=== PATIENT | female | born 1995 | race African-American/Black ===

== ENCOUNTER 2017-03-30 19:34 | Emergency (ER) | payer MEDICAID ==
[~2017-03-30] VITALS: Ht 167.6 cm; Wt 60.0 kg
[2017-03-30] MEDS ORDERED: TETRACAINE 0.5% OPHTH DROPS 4ML OP ONE (20:15)
[2017-03-30] MEDS ORDERED: BALANCED SALT IRRIG SOLN 15ML IO ONE (20:15)
[2017-03-30] MEDS ORDERED: FLUORESCEIN SODIUM 1MG/STRIP OP ONE (20:15)
[2017-03-30] MEDS ORDERED: ACETAMINOPHEN 325MG TABLET PO ONE (20:15)
[2017-03-30 21:13] LABS: HCG SCREEN NEGATIVE
[2017-03-31 00:35] VITALS: BP 121/78
== END 2017-03-31 00:37 | disposition home or self-care (01) ==
LOC: ER 19:35
DX: H10.212 Acute toxic conjunctivitis, left eye (principal)
CPT/HCPCS: 84703; 99284; J7030

== ENCOUNTER 2017-05-14 17:17 | Emergency (ER) | payer MEDICAID ==
[~2017-05-14] VITALS: Ht 167.6 cm; Wt 70.0 kg
[2017-05-15] MEDS ORDERED: ONDANSETRON 4MG ODT PO STA (00:10)
[2017-05-15] MEDS ORDERED: ACETAMINOPHEN 500MG TABLET PO ONE (00:15)
[2017-05-15 00:53] LABS: CHLORIDE 104 mEq/L (98-107)
[2017-05-15 01:02] LABS: CARBON DIOXIDE 29 mEq/L (21-32)
[2017-05-15 01:07] LABS: BASOPHILS % 0.7 % (0.0-2.0); EOSINOPHILS % 1.4 % (0.0-5.0); HEMATOCRIT. 36.7 % (36.0-48.0); HEMOGLOBIN. 11.9 g/dL (12.0-16.0); LYMPHOCYTES % 33.9 % (20.0-50.0); MEAN CORPUSCULAR HEMOGLOBIN 27.2 pg (28.0-32.0); MEAN CORPUSCULAR VOLUME 83.7 fL (81.0-99.0); MEAN PLATELET VOLUME 8.1 fl (7.4-10.4); MONOCYTES % 10.9 % (2.0-8.0); NEUTROPHILS % 53.1 % (40.0-76.0); PLATELET 215 x1000/uL (130-400); RED BLOOD CELL COUNT 4.38 mill/uL (4.2-5.4); RED CELL DISTRIBUTION WIDTH 14.3 % (11.6-14.6)
[2017-05-15 01:08] LABS: CLARITY URINE TURBID (CLEAR); COLOR URINE YELLOW (YELLOW); GLUCOSE URINE NEGATIVE (NEGATIVE); KETONES URINE NEGATIVE (NEGATIVE); LEUKOCYTE ESTERASE URINE 2+ (NEGATIVE); NITRITE URINE NEGATIVE (NEGATIVE); OCCULT BLOOD URINE NEGATIVE (NEGATIVE); PROTEIN URINE NEGATIVE (NEGATIVE); SPECIFIC GRAVITY URINE 1.023 (1.005-1.030)
[2017-05-15] MEDS ORDERED: CEFTRIAXONE SODIUM 1 G/VIAL IM ONE (01:30)
[2017-05-15] MEDS ORDERED: LIDOCAINE HCL 1% 20ML VIAL (Pyxis) INJ INFIL ONE (01:30)
[2017-05-15 02:30] VITALS: BP 144/88
== END 2017-05-15 02:31 | disposition home or self-care (01) ==
LOC: ER 17:17
DX: N39.0 Urinary tract infection, site not specified (principal); Z98.890 Other specified postprocedural states
CPT/HCPCS: 36415; 80053; 81001; 81025; 83690; 85025; 96372; 99284; J0696; J3490; Q0162; Z7610

== ENCOUNTER 2018-02-01 03:35 | Emergency (ER) | payer MEDICAID ==
[~2018-02-01] VITALS: Ht 165.1 cm; Wt 68.0 kg
[2018-02-01] MEDS ORDERED: HYDROCODONE/ACETAMINOPHEN 5/325MG TABLET PO ONE (06:30)
[2018-02-01] MEDS ORDERED: TETANUS, DIPHTHERIA, PERTUSSIS VAC/PF 0.5ML (>7YR OLD) IM ONE (06:30)
[2018-02-01] MEDS ORDERED: LIDOCAINE HCL 1% 20ML VIAL (Pyxis) INJ MC ONE ×3 (06:30→08:00)
[2018-02-01] MEDS ORDERED: BACITRACIN ZINC OINT UDPKT TOP ONE (06:30)
[2018-02-01] MEDS ORDERED: LIDOCAINE HCL/PF 1% 10 MG/ML 5ML VIAL IJ ONE (08:00)
[2018-02-01 10:00] VITALS: BP 108/72
== END 2018-02-01 11:24 | disposition home or self-care (01) ==
LOC: ER 03:35
DX: S01.81XA Laceration without foreign body of other part of head, initial encounter (principal); S01.01XA Laceration without foreign body of scalp, initial encounter; M54.2 Cervicalgia; W22.8XXA Striking against or struck by other objects, initial encounter; Y93.89 Activity, other specified; Y92.89 Other specified places as the place of occurrence of the external cause; Y99.8 Other external cause status; Z98.890 Other specified postprocedural states
CPT/HCPCS: 12013; 70450; 70486; 72125; 81025; 90471; 90715; 99284; J3490; X7700; Z7610

== ENCOUNTER 2018-02-02 09:59 | Emergency (ER) | payer MEDICAID ==
[~2018-02-02] VITALS: Ht 165.1 cm; Wt 69.0 kg
[2018-02-02 11:27] VITALS: BP 114/74
== END 2018-02-02 11:28 | disposition home or self-care (01) ==
LOC: ER 10:53
DX: S01.81XD Laceration without foreign body of other part of head, subsequent encounter (principal); X58.XXXD Exposure to other specified factors, subsequent encounter; Y93.89 Activity, other specified; Y99.8 Other external cause status; Y92.89 Other specified places as the place of occurrence of the external cause; Z98.890 Other specified postprocedural states
CPT/HCPCS: 99281

== ENCOUNTER 2018-02-07 08:50 | Emergency (ER) | payer MEDICAID ==
[~2018-02-07] VITALS: Ht 167.6 cm; Wt 69.0 kg
[2018-02-08 08:29] VITALS: BP 124/64
== END 2018-02-08 08:46 | disposition home or self-care (01) ==
LOC: ER 09:29
DX: S01.81XD Laceration without foreign body of other part of head, subsequent encounter (principal); Z48.02 Encounter for removal of sutures; Z98.890 Other specified postprocedural states; X58.XXXD Exposure to other specified factors, subsequent encounter
CPT/HCPCS: 99283

== ENCOUNTER 2018-02-23 08:52 | Emergency (ER) | payer MEDICAID ==
[~2018-02-23] VITALS: Ht 167.6 cm; Wt 69.0 kg
[2018-02-23 09:20] VITALS: BP 107/59
[2018-02-23] MEDS ORDERED: IBUPROFEN 800MG TABLET PO ONE (10:45)
== END 2018-02-23 10:59 | disposition home or self-care (01) ==
LOC: ER 10:23
DX: R51 Headache (principal)
CPT/HCPCS: 99282

== ENCOUNTER 2019-05-25 03:50 | Emergency (ER) | payer OTHER, MEDICAID ==
[~2019-05-25] VITALS: Ht 167.6 cm; Wt 82.0 kg
[2019-05-25] MEDS ORDERED: IBUPROFEN 600MG TABLET PO ONE (04:45)
[2019-05-25] MEDS ORDERED: LIDOCAINE HCL/PF 1% 10 MG/ML 5ML VIAL IJ ONE (04:45)
[2019-05-25] MEDS ORDERED: BACITRACIN ZINC OINT UDPKT TOP ONE (04:45)
[2019-05-25 06:00] VITALS: BP 100/59
== END 2019-05-25 06:06 | disposition home or self-care (01) ==
LOC: ER 03:50
DX: L02.31 Cutaneous abscess of buttock (principal); Z98.890 Other specified postprocedural states
CPT/HCPCS: 10060; 81025; 99283; J3490

== ENCOUNTER 2019-05-27 07:55 | Emergency (ER) | payer OTHER, MEDICAID ==
[~2019-05-27] VITALS: Ht 167.6 cm; Wt 82.0 kg
[2019-05-27 08:02] VITALS: BP 117/66
[2019-05-27] MEDS ORDERED: CLINDAMYCIN HCL 150MG CAPSULE PO STA (08:51)
[2019-05-27] MEDS ORDERED: ACETAMINOPHEN 325MG TABLET PO ONE (09:00)
== END 2019-05-27 09:57 | disposition home or self-care (01) ==
LOC: ER 07:55
DX: Z48.00 Encounter for change or removal of nonsurgical wound dressing (principal)
CPT/HCPCS: 99283

== ENCOUNTER 2019-05-29 06:33 | Emergency (ER) | payer OTHER, MEDICAID ==
[~2019-05-29] VITALS: Ht 167.6 cm; Wt 82.0 kg
[2019-05-29 07:07] VITALS: BP 105/60
[2019-05-29] MEDS ORDERED: IBUPROFEN 600MG TABLET ONE (07:42)
== END 2019-05-29 08:30 | disposition home or self-care (01) ==
LOC: ER 06:33
DX: Z48.01 Encounter for change or removal of surgical wound dressing (principal)
CPT/HCPCS: 99281; A4217; Z7610

== ENCOUNTER 2019-05-31 07:15 | Emergency (ER) | payer OTHER, MEDICAID ==
[~2019-05-31] VITALS: Ht 165.1 cm; Wt 81.0 kg
[2019-05-31 07:44] VITALS: BP 95/62
[2019-05-31] MEDS ORDERED: BACITRACIN ZINC OINT UDPKT TOP ONE (09:00)
== END 2019-05-31 09:15 | disposition home or self-care (01) ==
LOC: ER 07:15
DX: Z48.01 Encounter for change or removal of surgical wound dressing (principal); Z79.899 Other long term (current) drug therapy
CPT/HCPCS: 99281; 99283

== ENCOUNTER 2020-05-16 00:35 | Emergency (ER) | payer OTHER, MEDICAID ==
[~2020-05-16] VITALS: Ht 172.7 cm; Wt 64.0 kg
[2020-05-16] MEDS ORDERED: VISCOUS LIDOCAINE 2% 15 ML UDC PO ONE (01:45)
[2020-05-16] MEDS ORDERED: MAGNESIUM/ALUMINUM HYDROXIDE/SIMETHICONE 30ML UDC PO ONE (01:45)
[2020-05-16 02:20] LABS: EOSINOPHILS % 0.6 % (0.0-5.0); HEMATOCRIT. 35.7 % (36.0-48.0); LYMPHOCYTES % 21.9 % (20.0-50.0); MEAN CORPUSCULAR HEMOGLOBIN 28.5 pg (28.0-32.0); MEAN CORPUSCULAR VOLUME 84.6 fL (81.0-99.0); MEAN PLATELET VOLUME 8.4 fl (7.4-10.4); MONOCYTES % 7.5 % (2.0-8.0); PLATELET 190 x1000/uL (130-400); RED BLOOD CELL COUNT 4.22 mill/uL (4.2-5.4); RED CELL DISTRIBUTION WIDTH 14.4 % (11.6-14.6)
[2020-05-16 02:23] LABS: CHLORIDE 107 mEq/L (98-107)
[2020-05-16 02:27] LABS: ETHANOL BLOOD < 10 mg/dL
[2020-05-16 03:36] LABS: HCG SCREEN NEGATIVE
[2020-05-16 06:36] VITALS: BP 107/70
== END 2020-05-16 06:36 | disposition home or self-care (01) ==
LOC: ER 00:35
DX: R11.2 Nausea with vomiting, unspecified (principal)
CPT/HCPCS: 36415; 80053; 80320; 84484; 84703; 85025; 93005; 99285; G0480

== ENCOUNTER 2020-06-06 20:21 | Emergency (ER) | payer OTHER, MEDICAID ==
[~2020-06-06] VITALS: Ht 167.6 cm; Wt 68.0 kg
[2020-06-06] MEDS ORDERED: ONDANSETRON HCL 4MG/2ML INJ IV ONE (21:00)
[2020-06-06] MEDS ORDERED: SODIUM CHLORIDE 0.9% 1,000 ML IV ONE (21:00)
[2020-06-06 21:24] LABS: BASOPHILS % 0.5 % (0.0-2.0); EOSINOPHILS % 0.5 % (0.0-5.0); HEMATOCRIT. 42.1 % (36.0-48.0); HEMOGLOBIN. 13.8 g/dL (12.0-16.0); LYMPHOCYTES % 21.8 % (20.0-50.0); MEAN CORPUSCULAR HEMOGLOBIN 27.5 pg (28.0-32.0); MEAN CORPUSCULAR VOLUME 83.7 fL (81.0-99.0); MEAN PLATELET VOLUME 8.1 fl (7.4-10.4); MONOCYTES % 11.8 % (2.0-8.0); NEUTROPHILS % 65.4 % (40.0-76.0); PLATELET 248 x1000/uL (130-400); RED BLOOD CELL COUNT 5.03 mill/uL (4.2-5.4); RED CELL DISTRIBUTION WIDTH 14.8 % (11.6-14.6)
[2020-06-06 21:28] LABS: CHLORIDE 105 mEq/L (98-107)
[2020-06-06 21:40] LABS: B-HCG QUANTITATIVE 143 mIU/mL (<3)
[2020-06-06 22:45] LABS: CLARITY URINE CLOUDY (CLEAR); COLOR URINE YELLOW (YELLOW); KETONES URINE NEGATIVE (NEGATIVE); LEUKOCYTE ESTERASE URINE 2+ (NEGATIVE); NITRITE URINE NEGATIVE (NEGATIVE); OCCULT BLOOD URINE NEGATIVE (NEGATIVE); PROTEIN URINE NEGATIVE (NEGATIVE); SPECIFIC GRAVITY URINE 1.023 (1.005-1.030)
[2020-06-07 00:52] VITALS: BP 104/62
== END 2020-06-07 00:57 | disposition home or self-care (01) ==
LOC: ER 20:21
DX: O20.0 Threatened abortion (principal); F17.290 Nicotine dependence, other tobacco product, uncomplicated; F12.10 Cannabis abuse, uncomplicated
CPT/HCPCS: 36415; 76801; 76817; 80053; 81003; 81025; 84702; 85025; 86850; 86900; 86901; 93005; 96361; 96374; 99285; J2405; J7030

== ENCOUNTER 2020-08-25 22:08 | Emergency (ER) | payer OTHER, MEDICAID ==
[~2020-08-25] VITALS: Ht 167.6 cm; Wt 68.0 kg
[2020-08-25 22:16] VITALS: BP 119/60
[2020-08-25 23:06] LABS: CLARITY URINE CLEAR (CLEAR); COLOR URINE YELLOW (YELLOW); KETONES URINE NEGATIVE (NEGATIVE); LEUKOCYTE ESTERASE URINE NEGATIVE (NEGATIVE); NITRITE URINE NEGATIVE (NEGATIVE); OCCULT BLOOD URINE NEGATIVE (NEGATIVE); PH URINE 7.5 (4.5-8.0); PROTEIN URINE NEGATIVE (NEGATIVE); SPECIFIC GRAVITY URINE 1.022 (1.005-1.030)
[2020-08-25 23:17] LABS: *AMPHETAMINES SCREEN URINE NEGATIVE (NEGATIVE); *BARBITURATES SCREEN URINE NEGATIVE (NEGATIVE); *BENZODIAZEPINES SCREEN URINE NEGATIVE (NEGATIVE); *COCAINE SCREEN URINE NEGATIVE (NEGATIVE)
[2020-08-25 23:18] LABS: OPIATES URINE SCREEN NEGATIVE (NEGATIVE); PHENCYCLIDINE URINE SCREEN NEGATIVE (NEGATIVE)
[2020-08-25 23:19] LABS: METHADONE URINE SCREEN NEGATIVE (NEGATIVE)
[2020-08-25 23:22] LABS: CANNABINOID URINE SCREEN PRESUMTIVE POSITIVE (NEGATIVE)
[2020-08-25 23:38] LABS: CHLORIDE 107 mEq/L (98-107)
[2020-08-25 23:44] LABS: BASOPHILS % 0.4 % (0.0-2.0); EOSINOPHILS % 1.6 % (0.0-5.0); HEMATOCRIT. 32.3 % (36.0-48.0); HEMOGLOBIN. 10.9 g/dL (12.0-16.0); LYMPHOCYTES % 22.2 % (20.0-50.0); MEAN CORPUSCULAR HEMOGLOBIN 30.7 pg (28.0-32.0); MEAN CORPUSCULAR VOLUME 90.6 fL (81.0-99.0); MONOCYTES % 10.4 % (2.0-8.0); NEUTROPHILS % 65.4 % (40.0-76.0); PLATELET 225 x1000/uL (130-400); RED BLOOD CELL COUNT 3.56 mill/uL (4.2-5.4)
== END 2020-08-26 01:20 | disposition home or self-care (01) ==
LOC: ER 22:08
DX: O26.891 Other specified pregnancy related conditions, first trimester (principal); R10.33 Periumbilical pain; O99.321 Drug use complicating pregnancy, first trimester; F12.90 Cannabis use, unspecified, uncomplicated; Z3A.14 14 weeks gestation of pregnancy
CPT/HCPCS: 36415; 76801; 80053; 80305; 81003; 85025; 93005; 99285

== ENCOUNTER 2020-09-19 21:33 | Emergency (ER) | payer OTHER, MEDICAID ==
[~2020-09-19] VITALS: Ht 167.6 cm; Wt 69.0 kg
[2020-09-19] MEDS ORDERED: ACETAMINOPHEN 325MG TABLET PO STA (23:05)
[2020-09-19] MEDS ORDERED: BACITRACIN 15GM TUBE TOP ONE (23:15)
[2020-09-19 23:44] LABS: CHLORIDE 106 mEq/L (98-107)
[2020-09-20 00:04] LABS: BASOPHILS % 1.4 % (0.0-2.0); EOSINOPHILS % 3.1 % (0.0-5.0); HEMATOCRIT. 35.1 % (36.0-48.0); LYMPHOCYTES % 19.5 % (20.0-50.0); MEAN CORPUSCULAR HEMOGLOBIN 30.7 pg (28.0-32.0); MEAN CORPUSCULAR VOLUME 89.8 fL (81.0-99.0); MEAN PLATELET VOLUME 8.1 fl (7.4-10.4); MONOCYTES % 8.7 % (2.0-8.0); NEUTROPHILS % 67.3 % (40.0-76.0); PLATELET 243 x1000/uL (130-400); RED BLOOD CELL COUNT 3.91 mill/uL (4.2-5.4); RED CELL DISTRIBUTION WIDTH 13.3 % (11.6-14.6)
[2020-09-20 00:09] LABS: B-HCG QUANTITATIVE 23102 mIU/mL (<3)
[2020-09-20 00:10] LABS: CLARITY URINE CLOUDY (CLEAR); COLOR URINE YELLOW (YELLOW); KETONES URINE NEGATIVE (NEGATIVE); LEUKOCYTE ESTERASE URINE 2+ (NEGATIVE); NITRITE URINE NEGATIVE (NEGATIVE); OCCULT BLOOD URINE TRACE (NEGATIVE); PROTEIN URINE NEGATIVE (NEGATIVE); SPECIFIC GRAVITY URINE 1.023 (1.005-1.030)
[2020-09-20 00:31] VITALS: BP 110/61
== END 2020-09-20 01:13 | disposition home or self-care (01) ==
LOC: ER 21:33
DX: O20.0 Threatened abortion (principal); O23.32 Infections of other parts of urinary tract in pregnancy, second trimester; Z3A.19 19 weeks gestation of pregnancy; F12.10 Cannabis abuse, uncomplicated
CPT/HCPCS: 36415; 76805; 80053; 81003; 84702; 85025; 86850; 86900; 93005; 99285

== ENCOUNTER 2021-10-08 06:09 | Emergency (ER) | payer MEDICAID, OTHER ==
[~2021-10-08] VITALS: Ht 170.2 cm; Wt 73.0 kg
[2021-10-08] MEDS ORDERED: KETOROLAC 30MG/ML VIAL IV STA (07:55)
[2021-10-08] MEDS ORDERED: ONDANSETRON HCL 4MG/2ML INJ IV STA (07:55)
[2021-10-08 08:44] LABS: BASOPHILS % 0.6 % (0.0-2.0); EOSINOPHILS % 0.4 % (0.0-5.0); HEMATOCRIT. 38.6 % (36.0-48.0); LYMPHOCYTES % 11.2 % (20.0-50.0); MEAN CORPUSCULAR HEMOGLOBIN 24.9 pg (28.0-32.0); MEAN CORPUSCULAR VOLUME 80.2 fL (81.0-99.0); MEAN PLATELET VOLUME 7.9 fl (7.4-10.4); MONOCYTES % 7.2 % (2.0-8.0); NEUTROPHILS % 80.6 % (40.0-76.0); PLATELET 226 x1000/uL (130-400); RED BLOOD CELL COUNT 4.81 mill/uL (4.2-5.4); RED CELL DISTRIBUTION WIDTH 15.7 % (11.6-14.6)
[2021-10-08] MEDS ORDERED: ONDA4TAB5 PO (09:21)
[2021-10-08 10:44] LABS: CHLORIDE 107 mEq/L (98-107)
[2021-10-08 11:34] VITALS: BP 117/71
== END 2021-10-08 11:36 | disposition home or self-care (01) ==
LOC: ER 06:09
DX: K52.9 Noninfective gastroenteritis and colitis, unspecified (principal)
CPT/HCPCS: 36415; 80053; 83690; 85025; 96374; 96375; 99284; J1885; J2405

== ENCOUNTER 2023-02-14 21:55 | Emergency (ER) | payer MEDICAID ==
[~2023-02-14] VITALS: Ht 167.6 cm; Wt 68.6 kg
[~2023-02-14 21:55] MED LIST: ONDA4TAB5 PO
[2023-02-14 22:05] VITALS: BP 132/88
[2023-02-14 22:24] LABS: CLARITY URINE TURBID (CLEAR); COLOR URINE YELLOW (YELLOW); KETONES URINE NEGATIVE (NEGATIVE); LEUKOCYTE ESTERASE URINE 2+ (NEGATIVE); NITRITE URINE NEGATIVE (NEGATIVE); OCCULT BLOOD URINE NEGATIVE (NEGATIVE); PH URINE >=9.0 (4.5-8.0); PROTEIN URINE 1+ (NEGATIVE); SPECIFIC GRAVITY URINE 1.029 (1.005-1.030)
[2023-02-14 23:06] LABS: BASOPHILS % 0.6 % (0.0-2.0); EOSINOPHILS % 0.1 % (0.0-5.0); HEMATOCRIT. 38.9 % (36.0-48.0); HEMOGLOBIN. 12.3 g/dL (12.0-16.0); LYMPHOCYTES % 18.9 % (20.0-50.0); MEAN CORPUSCULAR HEMOGLOBIN 24.8 pg (28.0-32.0); MEAN CORPUSCULAR VOLUME 78.3 fL (81.0-99.0); MEAN PLATELET VOLUME 7.7 fl (7.4-10.4); MONOCYTES % 6.7 % (2.0-8.0); NEUTROPHILS % 73.7 % (40.0-76.0); PLATELET 324 x1000/uL (130-400); RED BLOOD CELL COUNT 4.97 mill/uL (4.2-5.4); RED CELL DISTRIBUTION WIDTH 15.8 % (11.6-14.6)
[2023-02-14 23:13] LABS: CHLORIDE 104 mEq/L (98-107)
[2023-02-14] MEDS ORDERED: MAGNESIUM/ALUMINUM HYDROXIDE/SIMETHICONE 30ML UDC PO STA (23:16)
[2023-02-14] MEDS ORDERED: VISCOUS LIDOCAINE 2% 15 ML UDC PO STA (23:16)
[2023-02-14] MEDS ORDERED: ONDANSETRON 4MG ODT PO STA (23:16)
[2023-02-14] MEDS ORDERED: FAMOTIDINE 20MG TABLET PO ONE (23:30)
[2023-02-14 23:50] LABS: ETHANOL BLOOD < 10 mg/dL
[2023-02-15 00:10] LABS: HCG SCREEN NEGATIVE
[2023-02-15] MEDS ORDERED: ONDA4TAB50 MT (01:19)
[2023-02-15] MEDS ORDERED: TOPUD MT (01:19)
[2023-02-15] MEDS ORDERED: CIPR-264 MT (01:19)
[2023-02-15] MEDS ORDERED: FAMO-135 MT (01:19)
== END 2023-02-15 01:49 | disposition home or self-care (01) ==
LOC: ER 21:55
DX: N39.0 Urinary tract infection, site not specified (principal); Z98.890 Other specified postprocedural states
CPT/HCPCS: 36415; 74176; 80053; 80320; 81003; 83690; 84703; 85025; 99284; Q0162; G0480

== ENCOUNTER 2023-06-22 18:04 | Inpatient (IN) | payer MEDICAID ==
[~2023-06-22] VITALS: Ht 167.6 cm; Wt 66.8 kg
[~2023-06-22 18:04] MED LIST changes: +CIPR-264 MT; +FAMO-135 MT; +ONDA4TAB50 MT; +TOPUD MT
[2023-06-22] MEDS: ACETAMINOPHEN 325MG TABLET PO STA (18:41)
[2023-06-22] MEDS ORDERED: SODIUM CHLORIDE 0.9% 1000ML BAG (SEPSIS BOLUS) IV ONE (18:45)
[2023-06-22 19:23] LABS: CHLORIDE 104 mEq/L (98-107); INDEX HEMOLYSI 1 (1-3); INDEX ICTERIC 1 (1-4); INDEX LIPEMIC 1 (1-3); SODIUM 133 mEq/L (136-145)
[2023-06-22 19:30] LABS: ALANINE AMINOTRANSFERASE 18 IU/L (13-61); ALBUMIN 2.7 g/dL (3.4-5.0); ASPARTATE AMINOTRANSFERASE 19 IU/L (15-37); BILIRUBIN TOTAL 0.5 mg/dL (0.1-1.0); CALCIUM 7.9 mg/dL (8.5-10.1); CARBON DIOXIDE 24 mEq/L (21-32); CREATINE KINASE 180 IU/L (26-192); CREATININE 0.8 mg/dL (0.6-1.3); ETHANOL BLOOD < 10 mg/dL (-10); GLUCOSE 109 mg/dL (70-105); PROTEIN TOTAL 8.6 g/dL (6.0-8.3); UREA NITROGEN BLOOD 4 mg/dL (7-21)
[2023-06-22 19:31] LABS: BASOPHILS % 0.1 % (0.0-2.0); DIFFERENTIAL COMMENT 0; HEMATOCRIT. 31.3 % (36.0-48.0); HEMOGLOBIN. 9.5 g/dL (12.0-16.0); LYMPHOCYTES % 11.9 % (20.0-50.0); MEAN CORPUSCULAR HEMOGLOBIN 22.7 pg (28.0-32.0); MEAN CORPUSCULAR HGB CONC 30.4 g/dL (31.0-37.0); MEAN CORPUSCULAR VOLUME 74.5 fL (81.0-99.0); MEAN PLATELET VOLUME 8.1 fl (7.4-10.4); PLATELET 425 x1000/uL (130-400); RED CELL DISTRIBUTION WIDTH 16.4 % (11.6-14.6); WHITE BLOOD COUNT 11.8 x1000/uL (4.5-11.0)
[2023-06-22 19:42] LABS: HCG SCREEN NEGATIVE
[2023-06-22 20:08] LABS: LACTIC ACID 2.5 mmol/L (0.4-2.0)
[2023-06-22] MEDS ORDERED: VANCOMYCIN 1G PREMIX 200 ML IV ONE (21:00)
[2023-06-22] MEDS ORDERED: PIPERACILLIN/TAZ 3.375G PREMIX 50 ML IV ONE (21:00)
[2023-06-22] MEDS ORDERED: ACETAMINOPHEN 325MG TABLET PO NR (23:00)
[2023-06-23] MEDS ORDERED: LIDOCAINE HCL/EPINEPHRINE 1%-EPI 1:100,000 20 ML VIAL INFIL ONE (00:15)
[2023-06-23] MEDS ORDERED: ACETAMINOPHEN WITH CODEINE 300/30MG TABLET PO ONE (00:15)
[2023-06-23 01:36] LABS: CLARITY URINE CLOUDY (CLEAR); COLOR URINE YELLOW (YELLOW); GLUCOSE URINE NEGATIVE (NEGATIVE); KETONES URINE NEGATIVE (NEGATIVE); LEUKOCYTE ESTERASE URINE 3+ (NEGATIVE); NITRITE URINE POSITIVE (NEGATIVE); OCCULT BLOOD URINE 1+ (NEGATIVE); PH URINE 5.5 (4.5-8.0); PROTEIN URINE TRACE (NEGATIVE); UROBILINOGEN URINE 0.2 E.U./dL (0.2-1.0)
[2023-06-23 01:50] LABS: *BARBITURATES SCREEN URINE NEGATIVE (NEGATIVE); *BENZODIAZEPINES SCREEN URINE NEGATIVE (NEGATIVE); *COCAINE SCREEN URINE NEGATIVE (NEGATIVE); CANNABINOID URINE SCREEN NEGATIVE (NEGATIVE); ECSTASY MDMA SCREEN URINE NEGATIVE (NEGATIVE); METHADONE URINE SCREEN NEGATIVE (NEGATIVE); OPIATES URINE SCREEN NEGATIVE (NEGATIVE); PHENCYCLIDINE URINE SCREEN NEGATIVE (NEGATIVE)
[2023-06-23 02:04] LABS: *AMPHETAMINES SCREEN URINE PRESUMTIVE POSITIVE (NEGATIVE)
[2023-06-23 02:18] LABS: WBC URINE 15-25 /hpf (0-2)
[2023-06-23 02:19] LABS: BACTERIA URINE 1+; SQUAMOUS EPITHELIAL CELL URINE FEW /lpf (RARE/1+)
[2023-06-23 03:00] VITALS: BP 132/80; PULSE 96; RESP 18; TEMP 98.8
[2023-06-23 03:43] VITALS: BP 132/80; PULSE 96; RESP 18; TEMP 98.8
[2023-06-23] MEDS ORDERED: ONDANSETRON 4MG ODT PO PRN (03:45)
[2023-06-23] MEDS: ACETAMINOPHEN 325MG TABLET PO PRN ×3 (05:32→14:04)
[2023-06-23] MEDS ORDERED: CEFTRIAXONE 1GM PREMIX 50 ML IV SCH (09:30)
[2023-06-23 09:48] LABS: CHLORIDE 107 mEq/L (98-107); INDEX HEMOLYSI 1 (1-3); INDEX ICTERIC 1 (1-4); INDEX LIPEMIC 1 (1-3); POTASSIUM 3.4 mEq/L (3.5-5.1); SODIUM 136 mEq/L (136-145)
[2023-06-23 09:53] LABS: CALCIUM 7.8 mg/dL (8.5-10.1); CARBON DIOXIDE 24 mEq/L (21-32); CREATININE 0.6 mg/dL (0.6-1.3); GLUCOSE 151 mg/dL (70-105); UREA NITROGEN BLOOD 5 mg/dL (7-21)
[2023-06-23 09:54] LABS: DIFFERENTIAL COMMENT 0; EOSINOPHILS % 0.1 % (0.0-5.0); HEMOGLOBIN. 8.7 g/dL (12.0-16.0); LYMPHOCYTES % 9.5 % (20.0-50.0); MEAN CORPUSCULAR HEMOGLOBIN 22.9 pg (28.0-32.0); MEAN CORPUSCULAR HGB CONC 31.2 g/dL (31.0-37.0); MEAN CORPUSCULAR VOLUME 73.6 fL (81.0-99.0); MEAN PLATELET VOLUME 8.3 fl (7.4-10.4); MONOCYTES % 4.3 % (2.0-8.0); NEUTROPHILS % 84.1 % (40.0-76.0); PLATELET 340 x1000/uL (130-400); RED CELL DISTRIBUTION WIDTH 16.3 % (11.6-14.6); WHITE BLOOD COUNT 10.8 x1000/uL (4.5-11.0)
[2023-06-23 12:00] VITALS: BP 114/62; PULSE 88; RESP 18; TEMP 97.2
[2023-06-23] MEDS: CEFTRIAXONE 1,000 MG in DEXTROSE 5% WATER 50 ML IV SCH (13:13)
[2023-06-23] MEDS: FAMOTIDINE 20MG TABLET PO SCH ×2 (13:13→17:00)
[2023-06-23 16:00] VITALS: BP 127/81; PULSE 92; RESP 18; TEMP 98.1
[2023-06-23] MEDS ORDERED: NALOXONE HCL 0.4MG/ML VIAL IV PRN (16:00)
[2023-06-23] MEDS: HYDROCODONE/ACETAMINOPHEN 10/325MG TABLET PO PRN ×2 (16:07→21:13)
[2023-06-23 20:00] VITALS: BP 102/62; PULSE 96; RESP 17; TEMP 97.3
[2023-06-23 23:39] VITALS: BP 114/69; PULSE 109; RESP 20; TEMP 97.1
[2023-06-24] MEDS: HYDROCODONE/ACETAMINOPHEN 10/325MG TABLET PO PRN ×3 (03:14→11:31)
[2023-06-24 04:00] VITALS: BP 124/62; PULSE 101; RESP 20; TEMP 97.3
[2023-06-24 07:40] LABS: BASOPHILS % 0.1 % (0.0-2.0); DIFFERENTIAL COMMENT 0; EOSINOPHILS % 0.1 % (0.0-5.0); HEMATOCRIT. 27.5 % (36.0-48.0); HEMOGLOBIN. 8.4 g/dL (12.0-16.0); LYMPHOCYTES % 8.8 % (20.0-50.0); MEAN CORPUSCULAR HEMOGLOBIN 22.6 pg (28.0-32.0); MEAN CORPUSCULAR HGB CONC 30.6 g/dL (31.0-37.0); MEAN CORPUSCULAR VOLUME 74.1 fL (81.0-99.0); MEAN PLATELET VOLUME 8.7 fl (7.4-10.4); MONOCYTES % 4.4 % (2.0-8.0); NEUTROPHILS % 86.6 % (40.0-76.0); PLATELET 331 x1000/uL (130-400); RED BLOOD CELL COUNT 3.71 mill/uL (4.2-5.4); RED CELL DISTRIBUTION WIDTH 16.5 % (11.6-14.6); WHITE BLOOD COUNT 11.7 x1000/uL (4.5-11.0)
[2023-06-24 07:56] LABS: CHLORIDE 102 mEq/L (98-107); INDEX HEMOLYSI 1 (1-3); INDEX ICTERIC 1 (1-4); INDEX LIPEMIC 1 (1-3); POTASSIUM 3.8 mEq/L (3.5-5.1); SODIUM 133 mEq/L (136-145)
[2023-06-24 08:00] VITALS: BP 108/97; PULSE 78; RESP 18; TEMP 97.8
[2023-06-24 08:04] LABS: CALCIUM 7.9 mg/dL (8.5-10.1); CARBON DIOXIDE 27 mEq/L (21-32); CREATININE 0.7 mg/dL (0.6-1.3); GLUCOSE 73 mg/dL (70-105); UREA NITROGEN BLOOD 4 mg/dL (7-21)
[2023-06-24] MEDS: CEFTRIAXONE 1,000 MG in DEXTROSE 5% WATER 50 ML IV SCH (10:10)
[2023-06-24] MEDS: FAMOTIDINE 20MG TABLET PO SCH (10:10)
[2023-06-24] MEDS ORDERED: SULF1TAB48 MT (11:08)
[2023-06-24] MEDS ORDERED: AMOX1TAB16 MT (11:08)
[2023-06-24 12:00] VITALS: BP 105/70; PULSE 80; RESP 18; TEMP 97.7
[2023-06-24 12:32] VITALS: BP 105/66; PULSE 80; TEMP 97.7; O2SAT 98
== END 2023-06-24 13:05 | disposition home or self-care (01) | DRG 710 ==
LOC: ER 19:48 → 4WST 06-23 02:55
PROVIDERS: ADMIT Internal Medicine; ATTEND Internal Medicine
PROC: 0U9M0ZZ Drainage of Vulva, Open Approach (ICD-10-PCS; principal; 2023-06-22)
DX: A41.9 Sepsis, unspecified organism (principal); E43 Unspecified severe protein-calorie malnutrition; E87.20 Acidosis, unspecified; E88.09 Other disorders of plasma-protein metabolism, not elsewhere classified; F15.90 Other stimulant use, unspecified, uncomplicated; D50.9 Iron deficiency anemia, unspecified; E87.6 Hypokalemia; F17.210 Nicotine dependence, cigarettes, uncomplicated; N93.9 Abnormal uterine and vaginal bleeding, unspecified; N39.0 Urinary tract infection, site not specified; R65.20 Severe sepsis without septic shock; N76.2 Acute vulvitis; Z98.891 History of uterine scar from previous surgery; Z68.23 Body mass index [BMI] 23.0-23.9, adult; Z79.899 Other long term (current) drug therapy
CPT/HCPCS: 36415; 74176; 80048; 80053; 80305; 80320; 81003; 82550; 83605; 84145; 84703; 85025; 87389; 99285; J0696; J2543; J3370; J3490; J7030; J7060; G0480